=== PATIENT | female | born 1995 | race African-American/Black ===

== ENCOUNTER → 2021-09-07 | Outpatient (CLI) | payer OTHER ==
--- NOTE | 2021-09-07 13:14 | REP ---
INDICATION: PAIN IN RIGHT HAND. COMPARISON: None. TECHNIQUE: Four views FINDINGS: The joint spaces are symmetric and relatively well maintained. There is no evidence of acute fracture or destructive osseous lesion. IMPRESSION: Negative hand. <Electronically signed by Elias Gallegos > 09/07/21 [id number]
== END ==
LOC: M RAD 12:29
PROVIDERS: ATTEND Physician Assistant
DX: M79.641 Pain in right hand (principal)

== ENCOUNTER 2021-11-05 07:04 | Day surgery (SDC) | payer OTHER ==
[~2021-11-05] VITALS: Ht 165.1 cm; Wt 63.7 kg
[~2021-11-05 07:04] MED LIST: LR 1,000 ML IV ONE
[2021-11-05 07:36] LABS: HEMATOCRIT 39.2 % (36.0-47.0); HEMOGLOBIN 12.8 g/dl (12.0-15.5); MEAN CORPUSCULAR HEMOGLOBIN 29.8 pg (27.0-33.0); MEAN CORPUSCULAR HGB CONC 32.7 g/dl (32.0-36.5); MEAN CORPUSCULAR VOLUME 91.4 fl (80.0-96.0); PLATELET COUNT, AUTOMATED 225 10^3/uL (150-450); RED BLOOD COUNT 4.29 10^6/uL (4.00-5.40)
[2021-11-05 07:45] LABS: HCG, SERUM QUALITATIVE NEGATIVE (NEGATIVE)
[2021-11-05] MEDS ORDERED: ROCURONIUM BROMIDE 50 MG/5 ML VIAL As Ordered ONE (08:15)
[2021-11-05] MEDS ORDERED: dexameTHASONE 4 MG/ML 1ML VIAL (J1100 PER 1MG) As Ordered ONE (08:15)
[2021-11-05] MEDS ORDERED: propofoL 200 MG/20 ML VIAL As Ordered ONE (08:15)
[2021-11-05] MEDS ORDERED: LIDOCAINE 2% 100MG/5ML SDV (FOR ANES.) As Ordered ONE (08:15)
[2021-11-05] MEDS ORDERED: ONDANSETRON 4MG/2ML VIAL As Ordered ONE (08:15)
[2021-11-05] MEDS ORDERED: fentaNYL 250 MCG/5 ML INJECTION (J3010) As Ordered ONE (08:16)
[2021-11-05] MEDS ORDERED: MIDAZOLAM INJ 2MG/2ML VIAL (J2250 PER 1MG) As Ordered ONE (08:16)
[2021-11-05] MEDS ORDERED: BUPIVACAINE HCL 0.5% 30 ML VIAL As Ordered ONE (08:37)
[2021-11-05] MEDS ORDERED: KETOROLAC 60MG 2ML VIAL As Ordered ONE (10:10)
[2021-11-05] MEDS ORDERED: HYDROmorphone HCL 2 MG/ML 1ML VIAL As Ordered ONE (10:10)
[2021-11-05] MEDS ORDERED: ACETAMINOPHEN 1000MG 100ML IV BTL (OFIRMEV) (J0131 PER 10MG) As Ordered ONE (10:10)
[2021-11-05] MEDS ORDERED: SUGAMMADEX SODIUM 500 MG/5 ML VIAL (BRIDION) As Ordered ONE (10:10)
[2021-11-05] MEDS ORDERED: SILVER NITRATE APPLICATOR As Ordered ONE ×2 (10:21→10:45)
--- NOTE | 2021-11-05 11:03 | ROOPDOC ---
[facility] Report Of Operation Report of Operation DATE OF OPERATION: 11/05/2021 PREOPERATIVE DIAGNOSIS: Satisfied parity POSTOPERATIVE DIAGNOSIS: Satisfied parity PROCEDURE: Laparoscopic bilateral salpingectomy. SURGEON: Jadiel Sanchez DO, FACOG INSOLE TAPER: reuse technician ANESTHESIA: General anesthesia. IV FLUIDS: 800 mL LR. URINE OUTPUT: 100 mL via Rodríguez catheter. ESTIMATED BLOOD LOSS: 5 mL ANTIBIOTICS: None indicated. COMPLICATIONS: None. OPERATIVE FINDINGS: Normal appearing liver, gastric curve, and appendix. Normal appearing uterus, ovaries, and fallopian tubes bilaterally. DETAILED PROCEDURE DESCRIPTION: The risks, benefits, indications, and alternatives of the procedure were reviewed with the patient and informed consent was obtained. The patient was taken to the operating room and general anesthesia was obtained without difficulty. The patient was then placed in the low lithotomy position using gel-padded Reuben stirrups. The patient's arms were then gently tucked to her sides with padding. The patient was then prepped and draped in the usual sterile fashion. A surgical time-out was then performed and the patient's identity and planned procedures were verified with the operative team. A Rodríguez catheter was first placed to drain the bladder. A sterile speculum was then inserted into the vagina and the cervix was visualized. An acorn uterine manipulator was then placed as a means to manipulate the uterus. Gloves were then exchanged and attention was turned to the patient's abdomen where a 5 mm skin incision was made in the inferior aspect of the umbilicus after injection of Marcaine. A 5 mm trocar and sleeve and were then carefully introduced into the peritoneal cavity under direct visualization at a 90 degree angle while tenting up the abdominal wall. Intraperitoneal placement was confirmed under direct visualization and entry pressure was noted to be less than 5 mmHg. A pneumoperitoneum was obtained with several liters of CO2 gas. Upon entry into the peritoneal cavity, structures immediately below the incision were inspected and found to be free of injury. A survey of the patient's abdomen and pelvis was notable for a normal appearing liver, appendix, and gastric curve. The uterus, fallopian tubes and ovaries were normal in appearance. The anterior and posterior cul-de-sacs were noted to be normal as well. Two additional trocars were then placed. An 8mm trocar was placed in the left lower quadrant. A 5mm trocar was placed between the umbilical port and the left lower quadrant port, taking care to avoid any vasculature underneath. These trocars were placed after injection of Marcaine and skin incisions were made with a scalpel. Using LigaSure electrocautery, the left fallopian tube was dissected away from the mesosalpinx from the fimbriated end to the isthmic portion, taking care to cauterize any vasculature within the mesosalpinx. The fallopian tube was then amputated at its connection to the uterine cornua and removed from the patient's abdomen. Attention was then turned to the patient's right fallopian tube which was lifted by a blunt grasper and removed in a similar fashion with the LigaSure electrocautery. The right fallopian tube was then also removed from the patient's abdomen. All operative sites were then inspected and found to be hemostatic. The gas was then turned off and all CO2 was removed from the patient's abdomen. All ports were then removed under direct visualization. There was no bleeding seen from the trocar sites. The skin incisions were then closed with 4-0 Monocryl suture and covered with Dermabond. The uterine manipulator was then removed and hemostasis was achieved at the cervix with sticks of silver nitrate. All instruments were then confirmed to have been removed from the vagina. The patient's Rodríguez catheter was removed. At the completion of the case, the sponge, instrument and needle counts were correct x2. The patient tolerated the procedure well. She was cleansed and dried, taken out of lithotomy position, awakened from anesthesia and taken to the PACU in stable condition. JADIEL SANCHEZ DO Nov 05, 2021 11:03
[2021-11-05] MEDS ORDERED: fentaNYL 100 MCG/2 ML INJECTION (J3010) IV PRN (11:05)
[2021-11-05] MEDS ORDERED: oxyCODONE 5MG TAB PO PRN (11:05)
[2021-11-05] MEDS ORDERED: LR 1,000 ML IV SCH (11:05)
[2021-11-05] MEDS ORDERED: ONDANSETRON 4MG/2ML VIAL IV PRN (11:05)
[2021-11-05] MEDS ORDERED: KETOROLAC 30 MG/ML 1ML VIAL IV PRN (11:10)
[2021-11-05] MEDS ORDERED: PERCOCET 5MG/325MG TAB PO PRN (11:10)
[2021-11-05 12:15] VITALS: BP 109/70
== END 2021-11-05 12:46 | disposition home or self-care (01) ==
LOC: M SDC 07:04
PROVIDERS: ATTEND Obstetrics & Gynecology
DX: Z30.2 Encounter for sterilization (principal)
CPT/HCPCS: 36415; 58661; 84703; 85027; 86850; 86900; 86901; 88302; J0131; J1100; J1170; J1885; J2250; J2405; J3010

== ENCOUNTER 2022-01-28 20:01 | Observation (INO) | payer OTHER ==
[~2022-01-28] VITALS: Ht 165.1 cm; Wt 65.0 kg
[2022-01-28] MEDS ORDERED: NS 1,000 ML IV ONE (20:30)
[2022-01-28] MEDS ORDERED: CHARCOAL ACTIVATED LIQUID 25 GM/120 ML BTL PO ONE (20:30)
[2022-01-28 20:41] LABS: BASO % 0.6 % (0.0-1.0); EOS # 0.4 10^3/uL (0.0-0.5); EOS % 5.4 % (0.0-3.0); HEMATOCRIT 39.3 % (36.0-47.0); HEMOGLOBIN 13.5 g/dl (12.0-15.5); LYMPH # 2.7 10^3/uL (1.5-5.0); LYMPH % 40.1 % (24.0-44.0); MEAN CORPUSCULAR HEMOGLOBIN 30.8 pg (27.0-33.0); MEAN CORPUSCULAR HGB CONC 34.4 g/dl (32.0-36.5); MEAN CORPUSCULAR VOLUME 89.5 fl (80.0-96.0); MONO # 0.5 10^3/uL (0.0-0.8); MONO % 6.9 % (2.0-8.0); NEUTROPHILS # 3.1 10^3/uL (1.5-8.5); NEUTROPHILS % 46.7 % (36.0-66.0); PLATELET COUNT, AUTOMATED 269 10^3/uL (150-450); RED BLOOD COUNT 4.39 10^6/uL (4.00-5.40); WHITE BLOOD COUNT 6.6 10^3/uL (4.0-10.0)
[2022-01-28 20:55] LABS: HCG, SERUM QUALITATIVE NEGATIVE (NEGATIVE)
[2022-01-28] MEDS ORDERED: BUPR150T12 PO (20:58)
[2022-01-28 21:16] LABS: ACETAMINOPHEN LEVEL < 2.0 UG/ML (10.0-30.0); ALBUMIN 4.1 GM/DL (3.2-5.2); ALT/SGPT 13 U/L (12-78); BILIRUBIN,DIRECT < 0.1 MG/DL (0.0-0.2); BILIRUBIN,TOTAL 0.2 MG/DL (0.2-1.0); BLOOD UREA NITROGEN 15 MG/DL (7-18); CALCIUM LEVEL 9.4 MG/DL (8.5-10.1); CARBON DIOXIDE LEVEL 27 MEQ/L (21-32); CHLORIDE LEVEL 109 MEQ/L (98-107); CREATININE FOR GFR 0.89 MG/DL (0.55-1.30); ETHYL ALCOHOL (ETHANOL) < 0.003 % (0.000-0.010); GLOMERULAR FILTRATION RATE > 60.0 (>60); GLUCOSE, FASTING 117 MG/DL (70-100); POTASSIUM SERUM 3.7 MEQ/L (3.5-5.1); SALICYLATE LEVEL < 1.7 MG/DL (5.0-30.0); SODIUM LEVEL 141 MEQ/L (136-145); TOTAL PROTEIN 7.5 GM/DL (6.4-8.2)
[2022-01-28 21:57] LABS: AMPHETAMINES LEVEL URINE NEGATIVE (NEGATIVE); BARBITURATES URINE NEGATIVE (NEGATIVE); BENZODIAZEPINES URINE NEGATIVE (NEGATIVE); CANNABINOIDS URINE NEGATIVE (NEGATIVE); COCAINE METABOLITE URINE NEGATIVE (NEGATIVE); METHADONE URINE NEGATIVE (NEGATIVE); OPIATES URINE NEGATIVE (NEGATIVE); PHENCYCLIDINE URINE NEGATIVE (NEGATIVE)
[2022-01-28 22:03] LABS: RSV AMPLIFICATION NEGATIVE (NEGATIVE)
[2022-01-28] MEDS ORDERED: C 50TAB PO (23:57)
[2022-01-29] MEDS ORDERED: HOME MED LIST COMPLETE! XX SCH
[2022-01-29] MEDS ORDERED: ONDANSETRON 4MG/2ML VIAL IV PRN (00:35)
[2022-01-29] MEDS ORDERED: ACETAMINOPHEN TAB 650MG DOSE (2X325MG) PO PRN (00:35)
[2022-01-29 03:01] VITALS: BP 123/76
[2022-01-29 04:20] VITALS: BP 115/70
[2022-01-29 08:18] VITALS: BP 106/59
[2022-01-29 12:25] VITALS: BP 126/80
[2022-01-29 16:56] VITALS: BP 124/70
[2022-01-29 20:40] VITALS: BP 114/66
[2022-01-30] VITALS: BP 111/66
== END 2022-01-30 01:00 ==
LOC: M ED 20:01 → M ED INP 20:02 → M PCU 01-29 02:58
PROVIDERS: ADMIT Internal Medicine; ATTEND Internal Medicine
DX: T40.0X2A Poisoning by opium, intentional self-harm, initial encounter (principal); T14.91XA Suicide attempt, initial encounter; Y92.89 Other specified places as the place of occurrence of the external cause; Y93.9 Activity, unspecified; Y99.9 Unspecified external cause status; F32.9 Major depressive disorder, single episode, unspecified; Z79.899 Other long term (current) drug therapy
CPT/HCPCS: 36415; 80048; 80076; 80143; 80307; 82077; 82550; 84443; 84703; 85025; 86803; 87631; 93005; 93041; 94760; 96374; 99285; G0378

== ENCOUNTER 2022-01-29 18:49 | Inpatient (IN) | payer OTHER ==
[~2022-01-29 18:49] MED LIST changes: +BUPR150T12 PO; +C 50TAB PO; -LR 1,000 ML IV ONE
[2022-01-29] MEDS ORDERED: MAALOX 30 ML SUSP *UDC PO PRN (19:20)
[2022-01-29] MEDS ORDERED: MOM 30ML SUSPENSION UDC PO PRN (19:20)
[2022-01-29] MEDS ORDERED: ACETAMINOPHEN TAB 650MG DOSE (2X325MG) PO PRN (19:20)
[2022-01-29] MEDS ORDERED: OLANZapine ORAL DISINTEGRATING TAB 5MG PO PRN (19:20)
[2022-01-29] MEDS ORDERED: traZODone 50 MG TAB PO PRN (19:20)
[2022-01-30 01:06] VITALS: BP 113/75
[2022-01-30 06:59] VITALS: BP 121/65
[2022-01-30] MEDS: buPROPion **SR TABLET** (ZYBAN) 150MG PO SCH (10:00)
[2022-01-30] MEDS ORDERED: HOME MED LIST COMPLETE! XX SCH (16:40)
[2022-01-30 19:02] VITALS: BP 136/86
[2022-01-31 06:54] VITALS: BP 106/61
[2022-01-31] MEDS: buPROPion **SR TABLET** (ZYBAN) 150MG PO SCH (09:34)
[2022-01-31 16:34] VITALS: BP 113/58
[2022-02-01 06:30] VITALS: BP 120/55
[2022-02-01] MEDS: buPROPion **SR TABLET** (ZYBAN) 150MG PO SCH (08:18)
[2022-02-01 16:16] VITALS: BP 133/90
[2022-02-02 06:38] VITALS: BP 98/57
[2022-02-02] MEDS: buPROPion **SR TABLET** (ZYBAN) 150MG PO SCH (08:16)
[2022-02-02 17:53] VITALS: BP 126/78
[2022-02-03 06:51] VITALS: BP 105/67
[2022-02-03] MEDS ORDERED: BUPR150T12 PO (08:23)
[2022-02-03] MEDS: buPROPion **SR TABLET** (ZYBAN) 150MG PO SCH (08:38)
[2022-02-03 10:17] VITALS: BP 105/67
== END 2022-02-03 12:31 | disposition home or self-care (01) | DRG 881 ==
LOC: UNDOADMIN 19:16 → M PSY 19:16
PROVIDERS: ADMIT Psychiatry & Neurology Psychiatry; ATTEND Psychiatry & Neurology Psychiatry
DX: F43.21 Adjustment disorder with depressed mood (principal); R45.851 Suicidal ideations; F32.9 Major depressive disorder, single episode, unspecified; F41.1 Generalized anxiety disorder; F90.9 Attention-deficit hyperactivity disorder, unspecified type

== ENCOUNTER → 2022-07-14 | Outpatient (REF) ==
[2022-07-16 07:12] LABS: HERPES ZOSTER, VARICELLA IgG 2500 index (Immune >165); RUBEOLA IgG ANTIBODY >300.0 AU/mL (Immune >16.4)
== END ==
LOC: M LAB 15:34
PROVIDERS: ATTEND Nurse Practitioner Adult Health
DX: Z02.89 Encounter for other administrative examinations (principal)

== ENCOUNTER → 2022-07-22 | Outpatient (REF) | LOC: M LAB 16:33 | PROVIDERS: ATTEND Nurse Practitioner Adult Health | DX: Z02.1 Encounter for pre-employment examination (principal) ==

== ENCOUNTER → 2022-08-07 | Outpatient (REF) | LOC: M LABSMTC 10:42 | PROVIDERS: ATTEND Family Medicine | DX: Z20.822 Contact with and (suspected) exposure to COVID-19 (principal) ==

== ENCOUNTER → 2022-08-08 | Outpatient (REF) | payer OTHER | LOC: M LAB REF 12:06 | PROVIDERS: ATTEND Student in an Organized Health Care Education/Training Program | DX: J02.9 Acute pharyngitis, unspecified (principal) ==

== ENCOUNTER → 2022-08-30 | Outpatient (REF) | payer OTHER | LOC: M LAB REF 19:29 | PROVIDERS: ATTEND Physician Assistant | DX: J02.9 Acute pharyngitis, unspecified (principal) ==

== ENCOUNTER → 2024-01-01 | Outpatient (CLI) | payer OTHER ==
[~2024-01-01] MED LIST changes: +PROHANCE 279.3MG/ML 15ML VIAL As Ordered ONE
== END ==
LOC: M RAD 09:11
PROVIDERS: ATTEND Physician Assistant
DX: J32.4 Chronic pansinusitis (principal); R51.9 Headache, unspecified